=== PATIENT | female | born 1955 | race Caucasian/White ===

== ENCOUNTER 2019-10-17 11:20 | Day surgery (SDC) | payer MEDICARE ==
[2019-10-16 11:23] VITALS: BMI 56.7
[~2019-10-17 11:20] MED LIST: Dexamethasone 20 MG/5 ML VIAL ONE; Lidocaine 1% PF 5 ML VIAL ONE; Ondansetron PF 4 MG/2 ML Vial ONE; PROPOFOL 200 MG/20 ML VIAL ONE; Rocuronium Bromide 10 MG/ML (10ML VIAL) ONE; Succinylcholine Chloride 20 MG/ML 10 ml SYRINGE FS ONE
[2019-10-17] MEDS ORDERED: Fentanyl 100 MCG/2 ML VIAL ONE ×3 (12:34→16:23)
[2019-10-17 12:54] LABS: Hemoglobin 13.5 g/dL (12.0-16.0); Platelet Count 301 thou/uL (130-400)
[2019-10-17 13:17] LABS: Anion Gap 15 mmol/L (10-20); BUN (Urea Nitrogen) 15 mg/dL (9.8-20.1); Calc. Creatinine Clearance 159 mL/min (70-130); Calcium 9.7 mg/dL (7.8-10.44); Carbon Dioxide 24 mmol/L (23-31); Chloride 104 mmol/L (98-107); Estimated GFR-MDRD 76; Glucose 94 mg/dL (80-115); Potassium 4.1 mmol/L (3.5-5.1); Sodium 139 mmol/L (136-145)
[2019-10-17] MEDS ORDERED: Chlorhexidine Gluconate 15 ML UDCUP SSP ONE (13:56)
[2019-10-17] MEDS ORDERED: Lidocaine 1% w/Epinephrine 1:100K 20 ML VIAL ONE (13:56)
[2019-10-17] MEDS ORDERED: Clindamycin/D5W 900 mg/50 ml Premix Bag ONE (15:26)
[2019-10-17] MEDS ORDERED: Promethazine HCl 25 MG/ML VIAL ONE (16:53)
--- NOTE | 2019-10-18 12:33 | OP ---
DATE OF PROCEDURE: 10/17/2019 PREOPERATIVE DIAGNOSIS: Right oral buccal mucosal mass. PROCEDURES PERFORMED: Excision of right oral buccal mucosal mass and closure of buccal wound. PERMIT: Procedures, benefits, and risks including bleeding, infection, injury, anesthesia, allergic reaction and damage to the buccal mucosa causing scarring and necessitating revision or repair and alternatives were reviewed with the patient and family who expressed understanding of the information and consent form was signed and witnessed and a paper copy of the consent form is available for review in the paper chart. INDICATIONS: This is a female patient, presenting with an enlarging right buccal mass that has been irritating the patient and causing her pain when she is biting and making it difficult to chew and there is some concern for a neoplastic process as well. 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 FINDINGS: Right 2.5 firm buccal mass approximately close to the second upper right upper maxillary molar. DESCRIPTION OF OPERATION: The patient was brought back to the operating room and laid supine on the operating room table. General endotracheal anesthesia was administered. The area was first palpated and examined and found a firm 2.5 cm mass in the buccal mucosa just posterior to Stensen's duct on the right. The parotid was massaged and clear fluid was expressed from Stensen's duct and marked with a marking pen in order to avoid damage posterior to the Stensen's duct. The mass was located and an incision on the right and left sides were made on the mucosa and the mass was elevated with a combination of tenotomy scissors and Bovie cautery. The mass was removed and sent for pathology evaluation. The wound bed was probed and examined and no remaining mass was noted. A small portion was cauterized with needle-tip Bovie on a setting of 15. At this point, the wound was closed with a 4-0 Vicryl suture with interrupted stitches reapproximating the buccal mucosa superiorly and inferiorly. The area was irrigated copiously and suctioned and no bleeding was found. The patient at this point was turned over to Anesthesia for emergence. There were no complications. Job ID: [id number] MTDD
--- NOTE | 2019-10-22 13:25 | EKG ---
Test Reason : PREOP Blood Pressure : / mmHG Vent. Rate : 068 BPM Atrial Rate : 068 BPM P-R Int : 186 ms QRS Dur : 084 ms QT Int : 420 ms P-R-T Axes : 074 073 064 degrees QTc Int : 446 ms Normal sinus rhythm Normal ECG No previous ECGs available Confirmed by SINA LUU (2) on 10/22/2019 1:24:38 PM Referred By: MAHSA Confirmed By:SINA LUU
== END 2019-10-17 18:35 | disposition home or self-care (01) ==
LOC: SDC 11:20
PROVIDERS: ATTEND Student in an Organized Health Care Education/Training Program
PROC: 0CB40ZZ Excision of Buccal Mucosa, Open Approach (ICD-10-PCS; principal; 2019-10-17)
DX: K13.79 Other lesions of oral mucosa (principal); E03.9 Hypothyroidism, unspecified; K21.9 Gastro-esophageal reflux disease without esophagitis; E66.01 Morbid (severe) obesity due to excess calories; Z68.43 Body mass index [BMI] 50.0-59.9, adult; Z79.899 Other long term (current) drug therapy
CPT/HCPCS: 36415; 80048; 85014; 85018; 85049; 88305; 88341; 88342; 88360; 93005; 93010; J0131; J1100; J2001; J2405; J2550; J2704; J3010; J3490